=== PATIENT | female | born 1940 | race Two or more races ===

== ENCOUNTER 2020-01-05 16:48 | Emergency (ER) | payer OTHER ==
[~2020-01-05] VITALS: Ht 167.6 cm; Wt 59.0 kg
[2020-01-05] MEDS ORDERED: TOPROL XL25 M1 (17:06)
== END 2020-01-06 07:33 | disposition home or self-care (01) ==
LOC: ER 16:48 → CPU-OBS 17:01 → ER 17:01 → CPU-OBS 01-06 07:33
DX: E87.1 Hypo-osmolality and hyponatremia (principal); Z03.818 Encounter for observation for suspected exposure to other biological agents ruled out; R07.89 Other chest pain; R11.0 Nausea

== ENCOUNTER 2020-03-03 09:52 | Emergency (ER) | payer OTHER ==
[~2020-03-03] VITALS: Ht 182.9 cm; Wt 59.0 kg
[~2020-03-03 09:52] MED LIST: TOPROL XL25 M1
[2020-03-03] MEDS ORDERED: SYNTHROID (10:10)
== END 2020-03-03 19:40 | disposition home or self-care (01) ==
LOC: ER 09:52
DX: E87.1 Hypo-osmolality and hyponatremia (principal); E86.0 Dehydration; R42 Dizziness and giddiness

== ENCOUNTER 2021-03-19 08:00 | Outpatient (CLI) | payer OTHER ==
[~2021-03-19 08:00] MED LIST changes: +SYNTHROID
== END 2021-03-19 08:30 | disposition home or self-care (01) ==
LOC: PPH VACUNA 08:00
DX: Z23 Encounter for immunization (principal)

== ENCOUNTER 2021-04-09 15:20 | Outpatient (CLI) | payer OTHER | END 2021-04-09 15:30 | disposition home or self-care (01) | LOC: PPH VACUNA 15:20 | PROVIDERS: ATTEND Emergency Medicine Pediatric Emergency Medicine | DX: Z23 Encounter for immunization (principal) ==